=== PATIENT | male | born 1995 | race Caucasian/White ===

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

== ENCOUNTER 2018-06-23 10:56 | Observation (INO) ==
[2018-06-23] MEDS ORDERED: ONDANSETRON INJ 2 MG/ML 2 ML VIAL IV STA ×2 (11:20→12:57)
[2018-06-23] MEDS ORDERED: MoRPHine SULFATE 4 MG/ML 1 ML CARP\\VIAL IV STA ×2 (11:20→12:57)
--- NOTE | 2018-06-23 11:22 | Emergency Department Note ---
Entered by Mitzy Brantley acting as a scribe for History of Present Illness General Chief complaint: Constipation Stated complaint: CONSTIPATION Time Seen by Provider: 06/23/18 11:04 Source: patient History of Present Illness Provider complaint: constipation Onset (ago): month(s) 2 Location: abdomen Maximum Pain Intensity: 6 Quality: + other (constipation) Associated symptoms: + nausea/vomiting The patient is a 23 year old white male w/ PMHx of Hirschsprung's disease, an appendectomy, and a colonoscopy who presents to the ED w/ CC of constipation over the last 2 months. The patient rates his pain at a 6/10. He reports that he is able to pass gas but states that he is only passing stas and has not had a solid bowel movement. The patient states that he saw Dr. Solitario a couple of weeks ago. He states that he has had multiple surgeries and that he had a colostomy bag as a child and thinks that he may need another one. He states that he has been missing work secondary to pain. The patient states that he has lost 6 pounds as he has been vomiting after he has been eating. He states that he is on 390 mg of Linzess and Mirolax but states that this has not been helping to alleviate his symptoms. He states that he has not had a scope in a couple years. The patient reports occasional alcohol use but denies tobacco use. He states that he was at [facility] this morning and was referred here. Review of EMR shows that the patient saw Kat NICHOLAS who re commended an NG tube placement and Golytely. She also recommended liquids, Miralax, and Linzess. Home Medications Home Medications Medication Instructions Recorded Confirmed Type linaclotide [Linzess] 290 mcg PO DAILY 06/23/18 06/23/18 History omeprazole 20 mg PO DAILY 06/23/18 06/23/18 History polyethylene glycol 3350 [Miralax] 17 g PO DAILY 06/23/18 06/23/18 History Allergies Allergy/AdvReac Type Severity Reaction Status Date / Time amoxicillin Allergy Unknown . Verified 06/23/18 11:24 clavulanic acid Allergy Unknown . Verified 06/23/18 11:24 Past Med/Surg History Medical History Hirschsprung's disease (Chronic) Surgical History History of appendectomy (Resolved) Hx of colonoscopy (Resolved) Social History Feels Safe at Home: Yes Smoking Status: Never smoker Review of Systems See HPI for pertinent positives & negatives. and A total of 10 systems reviewed and were otherwise negative Physical Exam Vital Signs Vital Signs - 24 hr 06/23/18 10:59 06/23/18 13:07 Temperature 36.8 C Temperature Source Oral Sepsis Action Taken by Nursing No Action Required Pulse Rate 64 Pulse Rate [Finger] 53 L Respiratory Rate 20 16 Respiratory Effort / Characteristics Non-Labored Spontaneous Non-Labored Respiratory Depth Normal Normal Blood Pressure 149/79 H Blood Pressure [Right Arm] 143/80 H Blood Pressure Mean 102 Blood Pressure Mean [Right Arm] 101 Pulse Oximetry 99 99 Oxygen Delivery Method Room Air GENERAL: Well appearing, well nourished, NAD, non-toxic. EYE EXAM: Normal conjunctiva. PERRL, no anisocoria and EOM's grossly intact w/o pain OROPHARYNX: Moist mucus membranes. NECK: Supple, no nuchal rigidity, no adenopathy, non-tender. No signs of meningismus. LUNGS: Clear to auscultation bilaterally. Normal chest wall mechanics. HEART: Normal sinus rhythm, no MRG. ABDOMEN: Abdomen soft, no masses, no rebound or guarding. Mildly diffuse abdominal discomfort. BACK: No CVA TTP. SKIN: No rashes and no bruising. UPPER EXTREMITIES: Upper extremities are grossly normal. LOWER EXTREMITIES: No pitting edema. No calf pain. NEURO EXAM: AOx3, GCS 15, no gross deficit, follows commands. Moves all 4 extremities on command w/o issue Course 1109: Past medical records reviewed. The patient was evaluated in room C6, and a complete history and physical examination were performed. 1255: I checked on the patient. He is still having discomfort. 1315: I discussed the patient's case with Kat BOO who said that if the patient cannot handle a bowel prep then he probably needs to be admitted. 1320: I updated the patient. He is agreeable to admission. We will put an NG tube in. 1332: I discussed the patient's case with Tre Warren who recommended 17 g of Miralax every hour. 1344: I discussed the patient's case with Dr. Bauer who will evaluate the patient for further management. Consultations Consultation #1: Kat NICHOLAS GI Time: 13:15 Consultation #2: Tre Warren Time: 13:32 Time: 13:44 Additional Consultation(s): Dr. Bauer Administered Medications Potassium Chloride/Dextrose/Sod Cl (D5w And 1/2nss + 20meq Kcl) 20 meq in 1,000 mls @ 125 mls/hr IV .Q8H JANE Stop: 07/23/18 13:29 Last Admin: 06/23/18 14:01 Dose: 125 mls/hr Documented by: [id number] Ioversol (Optiray 320 100ml) 94 ml IV ONCE PRN PRN Reason: Interaction Checking Stop: 06/27/18 12:37 Last Admin: 06/23/18 12:38 Dose: 94 ml Documented by: [id number] Discontinued Medications Sodium Chloride (Nss 1000ml) 1,000 mls @ 999 mls/hr IV .Q1H1M JANE Stop: 06/23/18 12:30 Last Infusion: 06/23/18 12:53 Dose: 0 mls/hr Documented by: [id number] Admin: 06/23/18 11:42 Dose: 999 mls/hr Documented by: [id number] Metoclopramide HCl (Reglan) 10 mg IV NOW STA Stop: 06/23/18 13:02 Last Admin: 06/23/18 13:06 Dose: 10 mg Documented by: [id number] Morphine Sulfate (Morphine Sulfate) 4 mg IV NOW STA Stop: 06/23/18 11:21 Last Admin: 06/23/18 11:42 Dose: 4 mg Documented by: [id number] Morphine Sulfate (Morphine Sulfate) 4 mg IV NOW STA Stop: 06/23/18 12:58 Last Admin: 06/23/18 13:06 Dose: 4 mg Documented by: [id number] Ondansetron HCl (Zofran) 4 mg IV NOW STA Stop: 06/23/18 11:21 Last Admin: 06/23/18 11:42 Dose: 4 mg Documented by: [id number] Medical Decision Making Medical Records Attestation: I reviewed the patient's medical records. Home Medications Current Medication List: was personally reviewed by me Laboratory Data Attestation: I reviewed the patient's lab results. Result diagrams: 06/23/18 11:35 06/23/18 11:35 Lab Results 06/23/18 06/23/18 06/23/18 Range/Units 11:35 11:35 11:42 WBC 3.54 L (4.8-10.8) K/uL RBC 5.13 (4.7-6.1) M/uL Hgb 14.8 (14.0-18.0) g/dL POC Hgb 14.6 (14.0-18.0) g/dl Hct 43.6 (42-52) % POC Hct 43 (42-52) % MCV 85.0 (80-100) fL MCH 28.8 (25-34) pg MCHC 33.9 (32-36) g/dL RDW Std Deviation 38.7 (36.4-46.3) fL RDW Coeff of Tono 12.5 (11.5-14.5) % Plt Count 217 (130-400) K/uL MPV 10.7 H (7.4-10.4) fL Immature Gran % (Auto) 0.0 % Neut % (Auto) 46.9 % Lymph % (Auto) 37.3 % Clark % (Auto) 13.6 % Eos % (Auto) 1.4 % Baso % (Auto) 0.8 % Immature Gran # (Auto) 0.00 (0.00-0.02) K/uL Neut # (Auto) 1.66 (1.4-6.5) K/uL Lymph # (Auto) 1.32 (1.2-3.4) K/uL Clark # (Auto) 0.48 (0.11-0.59) K/uL Eos # (Auto) 0.05 (0-0.5) K/uL Baso # (Auto) 0.03 (0-0.2) K/uL POC Sodium 140 (135-144) mEq/L Sodium 139 (136-145) mmol/L POC Potassium 4.1 (3.3-5.0) mEq/L Potassium 4.0 (3.5-5.1) mmol/L POC Chloride 99 L (101-112) mEq/L Chloride 103 (98-107) mmol/L Carbon Dioxide 31 (21-32) mmol/L POC Total CO2 29 (24-31) mEq/l Anion Gap 4.0 (3-11) POC Anion Gap 17.0 (16-25) mmol/L POC BUN 14 (7-18) mg/dl BUN 15 (7-18) mg/dl Creatinine 1.10 (0.6-1.4) mg/dl POC Creatinine 1.0 (0.6-1.3) mg/dl Est Cr Clr Drug Dosing 128.8 ml/min Est GFR ( Amer) 110.6 Est GFR (Non-Af Amer) 95.5 BUN/Creatinine Ratio 13.5 (10-20) Glucose 97 (70-99) mg/dl POC Glucose (other) 97 (70-99) mg/dl Calcium 9.4 (8.5-10.1) mg/dl POC Ioniz Calcium Jennifer 1.24 (1.12-1.32) mmol/l Total Bilirubin 0.5 (0.2-1) mg/dl AST 18 (15-37) U/L ALT 26 (12-78) U/L Alkaline Phosphatase 69 (45-117) U/L Total Protein 7.7 (6.4-8.2) gm/dl Albumin 4.2 (3.4-5.0) gm/dl Globulin 3.5 (2.5-4.0) gm/dl Albumin/Globulin Ratio 1.2 (0.9-2) Lipase 121 (73-393) U/L Urine Color Urine Appearance (Clear) Urine pH (4.5-7.5) Ur Specific [place] (1.000-1.030) Urine Protein (Negative) Urine Glucose (UA) (Negative) Urine Ketones (Negative) Urine Blood (Negative) Urine Nitrite (Negative) Urine Bilirubin (Negative) Urine Urobilinogen (Negative) Ur Leukocyte Esterase (Negative) 06/23/18 Range/Units 12:50 WBC (4.8-10.8) K/uL RBC (4.7-6.1) M/uL Hgb (14.0-18.0) g/dL POC Hgb (14.0-18.0) g/dl Hct (42-52) % POC Hct (42-52) % MCV (80-100) fL MCH (25-34) pg MCHC (32-36) g/dL RDW Std Deviation (36.4-46.3) fL RDW Coeff of Tono (11.5-14.5) % Plt Count (130-400) K/uL MPV (7.4-10.4) fL Immature Gran % (Auto) % Neut % (Auto) % Lymph % (Auto) % Clark % (Auto) % Eos % (Auto) % Baso % (Auto) % Immature Gran # (Auto) (0.00-0.02) K/uL Neut # (Auto) (1.4-6.5) K/uL Lymph # (Auto) (1.2-3.4) K/uL Clark # (Auto) (0.11-0.59) K/uL Eos # (Auto) (0-0.5) K/uL Baso # (Auto) (0-0.2) K/uL POC Sodium (135-144) mEq/L Sodium (136-145) mmol/L POC Potassium (3.3-5.0) mEq/L Potassium (3.5-5.1) mmol/L POC Chloride (101-112) mEq/L Chloride (98-107) mmol/L Carbon Dioxide (21-32) mmol/L POC Total CO2 (24-31) mEq/l Anion Gap (3-11) POC Anion Gap (16-25) mmol/L POC BUN (7-18) mg/dl BUN (7-18) mg/dl Creatinine (0.6-1.4) mg/dl POC Creatinine (0.6-1.3) mg/dl Est Cr Clr Drug Dosing ml/min Est GFR ( Amer) Est GFR (Non-Af Amer) BUN/Creatinine Ratio (10-20) Glucose (70-99) mg/dl POC Glucose (other) (70-99) mg/dl Calcium (8.5-10.1) mg/dl POC Ioniz Calcium Jennifer (1.12-1.32) mmol/l Total Bilirubin (0.2-1) mg/dl AST (15-37) U/L ALT (12-78) U/L Alkaline Phosphatase (45-117) U/L Total Protein (6.4-8.2) gm/dl Albumin (3.4-5.0) gm/dl Globulin (2.5-4.0) gm/dl Albumin/Globulin Ratio (0.9-2) Lipase (73-393) U/L Urine Color Yellow Urine Appearance Clear (Clear) Urine pH 6.5 (4.5-7.5) Ur Specific [place] 1.015 (1.000-1.030) Urine Protein Negative (Negative) Urine Glucose (UA) Negative (Negative) Urine Ketones Negative (Negative) Urine Blood Negative (Negative) Urine Nitrite Negative (Negative) Urine Bilirubin Negative (Negative) Urine Urobilinogen Negative (Negative) Ur Leukocyte Esterase Negative (Negative) Imaging Data Radiologist's Impression: Radiology results as stated below per my review and the radiologist's interpretation: ABDOMEN AND PELVIS CT WITH IV CONTRAST CT DOSE: 1003.60 mGycm HISTORY: h/o Hirschsprung's, vomiting TECHNIQUE: Multiaxial CT images of the abdomen and pelvis were performed following the use of intravenous contrast. A dose lowering technique was utilized adhering to the principles of ALARA. COMPARISON STUDY: None. FINDINGS: The lung bases are clear. The liver, spleen, gallbladder, pancreas, kidneys, and adrenal glands are within normal limits. No bowel wall thickening or obstruction. The pelvic organs are unremarkable. No suspicious lytic or blastic osseous lesions. Prior appendectomy. Linear scarlike densities within the mid abdominal wall. IMPRESSION: No significant abnormality identified within the abdomen or pelvis. Electronically signed by: Josiah Rivas M.D. 06/23/2018 12:52 PM Blood Pressure Blood Pressure Findings: Elevated blood pressure Blood Pressure Disposition: further management by hospitalist TASHA Narrative The patient is a 23 year old white male w/ PMHx of Hirschsprung's disease, an appendectomy, and a colonoscopy who presents to the ED w/ CC of constipation over the last 2 months. Differential diagnosis: Etiologies such as biliary colic, cholecystitis, hepatitis, pancreatitis, cardiac disease, pancreatitis, gastritis, peptic ulcer disease, appendicitis, cystitis, diverticulitis, mesenteric ischemia, inflammatory bowel disease, ileus, bowel obstruction, testicular torsion, aortic pathology, shingles, as well as others were considered. Patient was seen and evaluated the bedside. The patient relates that he had some chronic constipation and lots of gas and incomplete bowel movements. The patient is have a history of Hirschsprung's status post partial colectomy and associated colostomy status post reversal. The patient did see [facility] today and was referred here for likely NG placement to MiraLAX. The patient has reportedly vomited virtually everything that he is tried to take within the last several days. Patient does have diffuse abdominal discomfort on exam. The patient had a bladder completed which is unremarkable. CT the abdomen pelvis was also unremarkable. I did speak with the outpatient associate agent insurance sales Ann Spence who stated that could potentially try ER treatment for a bowel movement but the patient states that this usually takes 12-13 hours at a minimum. Given this I did speak with the current in-house associate agent insurance sales Trace Schmitz who recommended the NG and associated MiraLAX 17 g every hour until he has a bowel movement. I did speak to the hospital to agree to further evaluate and admit the patient for an observation. With a gastroenterology consult. Impression & Plan Constipation, Hirschsprung's disease Discharge Plan Visit Data Chief Complaint: Constipation Stated Complaint: CONSTIPATION ED Provider: Jorge Reed Discharge Problem: Constipation, Hirschsprung's disease Patient Disposition: Being Evaluated by Hospitalist Forms Stand Alone Forms: My [facility] Prescriptions Prescriptions: No Action polyethylene glycol 3350 [Miralax] 17 gram Powder In Packet 17 g PO DAILY RF: 0 omeprazole 20 mg Capsule,Delayed Release(Dr/Ec) 20 mg PO DAILY RF: 0 Linzess 290 mcg Capsule 290 mcg PO DAILY RF: 0 Referrals Referrals: PCP,NO [Primary Care Provider] - Discharge Problem: Constipation Qualifiers: Constipation type: unspecified constipation type Qualified Code(s): K59.00 - Constipation, unspecified The scribe's documentation has been prepared under my direction and personally reviewed by me in its entirety. I confirm that the note above accurately reflects all work, treatment, procedures, and medical decision making performed by me.
[2018-06-23] MEDS ORDERED: SODIUM CHLORIDE 0.9% 1000ML 1,000 ML IV SCH (11:30)
[2018-06-23 11:54] LABS: iSTAT Hemoglobin 14.6 g/dl (14.0-18.0); iSTAT Ionized Calcium 1.24 mmol/l (1.12-1.32); iSTAT Potassium 4.1 mEq/L (3.3-5.0)
[2018-06-23 11:54] LABS: Basophils # (auto) 0.03 K/uL (0-0.2); Basophils % (auto) 0.8 %; Eosinophils # (auto) 0.05 K/uL (0-0.5); Eosinophils % (auto) 1.4 %; Hematocrit (blood only) 43.6 % (42-52); Hemoglobin 14.8 g/dL (14.0-18.0); Lymphocytes # (auto) 1.32 K/uL (1.2-3.4); Lymphocytes % (auto) 37.3 %; Mean Corpuscular Hgb Conc 33.9 g/dL (32-36); Mean Platelet Volume 10.7 fL (7.4-10.4); Monocytes # (auto) 0.48 K/uL (0.11-0.59); Monocytes % (auto) 13.6 %; Neutrophils # (auto) 1.66 K/uL (1.4-6.5); Neutrophils % (auto) 46.9 %; Platelet Count 217 K/uL (130-400); RDW Coefficient of Variation 12.5 % (11.5-14.5); RDW Standard Deviation 38.7 fL (36.4-46.3); Red Blood Count 5.13 M/uL (4.7-6.1); White Blood Count 3.54 K/uL (4.8-10.8)
[2018-06-23 12:11] LABS: Albumin Level 4.2 gm/dl (3.4-5.0); BUN Creatinine Ratio 13.5 (10-20); Calcium 9.4 mg/dl (8.5-10.1); Creatinine Clr Calc Pharmacy 128.8 ml/min; Est GFR (African American) 110.6; Est GFR (Non-African American) 95.5
[2018-06-23 12:14] LABS: Albumin Globulin Ratio 1.2 (0.9-2); Bilirubin,Total 0.5 mg/dl (0.2-1); Globulin 3.5 gm/dl (2.5-4.0); Total Protein 7.7 gm/dl (6.4-8.2)
[2018-06-23] MEDS ORDERED: IOVERSOL 100ml IV PRN (12:38)
--- NOTE | 2018-06-23 12:53 | CT Scan Report ---
ABDOMEN AND PELVIS CT WITH IV CONTRAST CT DOSE: 1003.60 mGycm HISTORY: h/o Hirschsprung's, vomiting TECHNIQUE: Multiaxial CT images of the abdomen and pelvis were performed following the use of intrave nous contrast. A dose lowering technique was utilized adhering to the principles of ALARA. COMPARISON STUDY: None. FINDINGS: The lung bases are clear. The liver, spleen, gallbladder, pancreas, kidneys, and adrenal gl ands are within normal limits. No bowel wall thickening or obstruction. The pelvic organs are unremar kable. No suspicious lytic or blastic osseous lesions. Prior appendectomy. Linear scarlike densities within the mid abdominal wall. IMPRESSION: No significant abnormality identified within the abdomen or pelvis. Electronically signed by: Josiah Rivas M.D. 06/23/2018 12:52 PM
[2018-06-23] MEDS ORDERED: METOCLOPRAMIDE HCL INJ 5 MG/ML 2 ML VIAL IV STA (13:01)
[2018-06-23 13:04] LABS: Appearance Urine Clear (Clear); Bilirubin Urine Negative (Negative); Blood Urine Negative (Negative); Color Urine Yellow; Glucose Urine UA Negative (Negative); Ketones Urine Negative (Negative); Leukocyte Esterase Urine Negative (Negative); Nitrite Urine Negative (Negative); Protein Urine Negative (Negative); Specific Gravity Urine 1.015 (1.000-1.030); Urobilinogen Urine Negative (Negative); pH Urine 6.5 (4.5-7.5)
[2018-06-23] MEDS ORDERED: POLYETHYLENE (MIRALAX) 17 GM PACK PO SCH (13:45)
[2018-06-23] MEDS: D5W AND 1/2NSS + 20MEQ KCL 20 MEQ/1,000 ML BAG IV SCH ×3 (14:01→22:06)
--- NOTE | 2018-06-23 14:02 | History & Physical Report ---
Date of Service June 23, 2018 Assessment & Plan (1) Constipation: Nausea, vomiting and Constipation H/O Hirschsprung's disease s/p multiple abdominal surgeries CT ABD:No significant abnormality identified within the abdomen or pelvis. Patient refuses NG tube placement IV fluids, Antiemetics Miralax Q1H until BM as per GI Pain Control Appreciate GI input Clear liquid diet for now Elevated Blood Pressure Likely due to pain Monitor DVT Px: SCDs Code Status: Full Code Disposition: Expect to discharge home when stable History of Present Illness Chief Complaint: Constipation Primary Care Provider: JACKELINE PCP Patient is a 23-year-old male with history of Hirschsprung's disease s/p multiple abdominal surgeries and other problems presents with history of constipation since last 2 months duration. Patient was evaluated by his accountancy professor as outpatient for ongoing intractable nausea, vomiting and constipation. Patient was advised to go to ED for further evaluation and management. Patient states having nausea and vomiting with every meal and has ongoing constipation since 2 months. Patient has flatus and very small pebble like stool and reports associated abdominal pain. He reports abdominal pain is generalized, predominantly located in the bilateral lower abdominal quadrants, and left upper quadrant. Abdominal pain is constant, nonradiating, 6/10 intensity, no aggravating or relieving factors, not associated with food intake or bowel movement. States weight loss of about 6 pounds in the last 2-3 weeks duration. Denies any blood in stool, melena. Reports history of stool incontinence. Denies any history of chest pain, SOB, dizziness, cough, fever, chills, headache, diarrhea, change in appetite, dysuria, hematuria, recent change in medications. Allergies Allergy/AdvReac Type Severity Reaction Status Date / Time amoxicillin Allergy Unknown . Verified 06/23/18 11:24 clavulanic acid Allergy Unknown . 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 Beliefs That Will Affect Care: None Current Living Situation: Alone Other Information That Helps Us Care for You: No Feels Safe at Home: Yes Safety Concerns: Feels Safe At This Time Smoking Status: Never smoker Hx Alcohol Use: Yes Hx Substance Use: No Review of Systems All systems reviewed & are unremarkable except as noted in HPI & below Physical Exam Vital Signs (Past 24 Hours): Last Vital Signs Temp 36.8 C 06/23/18 10:59 Pulse 53 L 06/23/18 13:07 Resp 16 06/23/18 13:07 BP 143/80 H 06/23/18 13:07 Pulse Ox 99 06/23/18 13:07 Physical Exam: Physical Exam: Vitals signs as noted above General Appearance:Moderately built and nourished, no apparent distress Head: normocephalic, Atraumatic Eyes: normal inspection, EOMI Neck: supple, Trachea midline Respiratory/Chest: Normal breath sounds, CTA Cardiovascular: S1, S2, No murmur Abdomen/GI:Soft, generalized tender, + Voluntary guarding, no rebound Extremities/Musculoskelatal:normal inspection, no edema Neurologic/Psych:AAOX3, grossly no focal neurological deficits Skin: normal color, warm Results & Data Laboratory Results Short CBC 06/23/18 Range/Units 11:35 WBC 3.54 L (4.8-10.8) K/uL Hgb 14.8 (14.0-18.0) g/dL Hct 43.6 (42-52) % Plt Count 217 (130-400) K/uL BMP 06/23/18 11:35 Sodium 139 Potassium 4.0 Chloride 103 Carbon Dioxide 31 BUN 15 Creatinine 1.10 Glucose 97 Calcium 9.4 Liver Function 06/23/18 Range/Units 11:35 Total Bilirubin 0.5 (0.2-1) mg/dl AST 18 (15-37) U/L ALT 26 (12-78) U/L Alkaline Phosphatase 69 (45-117) U/L Albumin 4.2 (3.4-5.0) gm/dl Urine 06/23/18 Range/Units 12:50 Urine Color Yellow Urine Appearance Clear (Clear) Urine pH 6.5 (4.5-7.5) Ur Specific [place] 1.015 (1.000-1.030) Urine Protein Negative (Negative) Urine Glucose (UA) Negative (Negative) Diagnostic Findings CT ABD: No significant abnormality identified within the abdomen or pelvis. (1) Constipation Constipation type: unspecified constipation type Qualified Code(s): K59.00 - Constipation, unspecified
[2018-06-23] MEDS: POLYETHYLENE (MIRALAX) 17 GM PACK NG SCH ×5 (15:45→19:57)
[2018-06-23] MEDS ORDERED: MoRPHine SULFATE 4 MG/ML 1 ML CARP\\VIAL IV PRN (18:15)
[2018-06-23] MEDS ORDERED: ACETAMINOPHEN 325 MG TAB PO PRN (18:15)
[2018-06-23] MEDS: POLYETHYLENE (MIRALAX) 17 GM PACK PO SCH ×6 (19:35→23:49)
[2018-06-23] MEDS: PANTOprazole 40 MG in SYRINGE 0 ML IV SCH (19:36)
[2018-06-23] MEDS: ONDANSETRON INJ 2 MG/ML 2 ML VIAL IV PRN (19:40)
[2018-06-23] MEDS ORDERED: Nursing to Pharmacy Communication ONE (21:05)
[2018-06-23] MEDS ORDERED: LINACLOTIDE 72 MCG CAPSULE PO ONE (21:30)
[2018-06-24] MEDS: POLYETHYLENE (MIRALAX) 17 GM PACK PO SCH ×7 (00:40→06:16)
[2018-06-24] MEDS: ONDANSETRON INJ 2 MG/ML 2 ML VIAL IV PRN ×2 (01:21→09:57)
[2018-06-24] MEDS: D5W AND 1/2NSS + 20MEQ KCL 20 MEQ/1,000 ML BAG IV SCH ×2 (05:29→13:40)
[2018-06-24 06:33] LABS: Hematocrit (blood only) 38.5 % (42-52); Hemoglobin 13.2 g/dL (14.0-18.0); Mean Corpuscular Hgb Conc 34.3 g/dL (32-36); Mean Corpuscular Volume 85.2 fL (80-100); Mean Platelet Volume 11.1 fL (7.4-10.4); Platelet Count 189 K/uL (130-400); RDW Coefficient of Variation 12.7 % (11.5-14.5); RDW Standard Deviation 39.5 fL (36.4-46.3); Red Blood Count 4.52 M/uL (4.7-6.1); White Blood Count 4.48 K/uL (4.8-10.8)
[2018-06-24 07:13] LABS: BUN Creatinine Ratio 8.4 (10-20); Calcium 8.8 mg/dl (8.5-10.1); Creatinine Clr Calc Pharmacy 124.3 ml/min; Est GFR (Non-African American) 91.4
[2018-06-24] MEDS ORDERED: LINACLOTIDE 72 MCG CAPSULE PO SCH (09:00)
--- NOTE | 2018-06-24 10:48 | Gastrointestinal Consultation ---
Date of Consultation June 24, 2018 Assessment & Plan (1) Constipation: Improved with a miralax purge. Would continue Linzess 290mcg daily. Encouraged to titrate Miralax to affect one BM/day. Also, pt referred to OP Colorectal surgery. Present on Admission?: Yes (2) Hirschsprung's disease: referred to OP colorectal surgery. Has f/u with Dr. Read 07/28/18 at (3) Nausea & vomiting: This is chronic, of 6 months duration, not clearly associated with the constipation (meaning not occurring with times of worsened constipation. Gastritis, duodenitis and ulcer disease should be ruled out. OP EGD scheduled with Dr. Read on 07/15/18 at [place]. Continue omeprazole 20mg daily. Trial of regular consistency diet (pt feels this would cause the least amt of nausea/vomiting today) No GI contraindication to DC if able to tolerate eating. Present on Admission?: Yes Supervising Physician Co-Signing Physician Notes I have performed a history and physical examination of this patient and reviewed the electronic medical record. Specifically, on physical examination there is diffuse abdominal tenderness. I have discussed the case with CRISTOPHER Acosta. The above note reflects my findings, conclusions, and recommendations. Elmer Smith MD History of Present Illness Reason for Consultation: constipation Requesting Physician: Dr. Norwood Attending Physician: Ross Norwood MD History of Present Illness Mr. Dakota Hardy is a 23 yr old male w/ history of Hirschsprung disease, encopresis, s/pcolostomy, pull through followed by colostomy takedown, MACE procedureand Sphincteroplasty. He is maintained on Linzess, Miralax. He was seen in GI clinic yesterday by Serina Taylor for bloating, worsening constipation, vomiting. He indicated an interest in surgery and an OP consult was placed to colorectal surgery, [place]. Meanwhile, because he was pale, appeared dehydrated with an acutely tender abdomen, he was sent to [facility] ED for eval. On arrival, CBC, CMP w/o any significant abnormalities. CT also without any abnormalities. Since arrival, with mirlax hourly till his first BM, he passed several loose/liquid BMs. In addition to the constipation issue, he reports frequent nausea, every day with vomiting nearly every day, since last December. He recalls this because he underwent NG insertion at that time for administration of golytely for constipation. He is concerned that the NG may have caused this ongoing nausea/vomiting. He denies vomiting of foods that he ate several hrs previously (no signs of gastroparesis). Also, no hematemesis, melena or hematochezia. Prior endoscopy: Most recent Colonoscopy 01/25/2014: The sigmoid colon and rectum are normal. Biopsied. The transverse and descending colon are normal.Biopsied. Normal mucosa of the cecum and ascending colon.Biopsied. Small ulcerated area at the internal openingof the apendicostomy tube which was NOT biopsied.The examined portion of the ileum was normal.Biopsied. EGD 07/05/2010: No gross lesions in duodenum. No gross lesions in the stomach. No gross lesions in esophagus. Allergies Allergy/AdvReac Type Severity Reaction Status Date / Time amoxicillin Allergy Unknown . Verified 06/23/18 11:24 clavulanic acid Allergy Unknown . Verified 06/23/18 11:24 Home Medications Home Medications Medication Instructions Recorded Confirmed Type Linzess 290 mcg PO DAILY 06/23/18 06/23/18 History omeprazole 20 mg PO DAILY 06/23/18 06/23/18 History polyethylene glycol 3350 [Miralax] 17 g PO DAILY 06/23/18 06/23/18 History Patient History Medical History Hirschsprung's disease (Chronic) Surgical History History of appendectomy (Resolved) Hx of colonoscopy (Resolved) Social History Preferred Language: Vincentian Communication Ability: Effective Housekeeping Manager Required: No Beliefs That Will Affect Care: None Current Living Situation: Alone Other Information That Helps Us Care for You: No Feels Safe at Home: Yes Safety Concerns: Feels Safe At This Time Smoking Status: Never smoker Do You Dip or Chew Tobacco: No Second Hand Exposure: No Tobacco Cessation Education Requested by Patient: No Hx Alcohol Use: Yes Hx Substance Use: No Physical Exam Vital Signs (Past 24 Hours): Last Vital Signs Temp 36.5 C 06/24/18 07:54 Pulse 64 06/24/18 07:54 Resp 16 06/24/18 07:54 BP 103/66 06/24/18 07:54 Pulse Ox 97 06/24/18 07:54 Constitutional: WD/WN, vitals as above well developed, well nourished, + acute distress and + overweight Eyes: PERRL, conjunctivae normal, anicteric sclerae ENMT: external ear and nose normal, oropharynx normal Neck: trachea midline, no thyromegaly Respiratory: normal respiratory effort, lungs clear to auscultation Cardiovascular: RRR, no murmur, no edema Gastrointestinal (Abdomen): Inspection/Auscultation: abdomen normal to inspection; abdomen not distended Percussion/Palpation: + abdomen tender (LUQ) and abdomen soft; no guarding and abdomen not rigid Musculoskeletal: no cyanosis or clubbing, extremities motor strength 5/5 Skin: no rashes, warm and dry Neurologic: PERRL, EOMI, accommodation nl, no face palsy, no dysarthria Psychiatric: A+Ox3, euthymic affect Lymphatic: no cervical or axillary lymphadenopathy Results & Data Laboratory Results WBC 4.4, Hb 13.2, Hct 38.5, Platelets 189, Na 139, K 4.0, Ch 106, CO2 27, BUN 10, Cr 1.14. Diagnostic Findings CT abd/pelvis: No significant abnormality identified within the abdomen or pelvis. (1) Constipation Constipation type: unspecified constipation type Qualified Code(s): K59.00 - Constipation, unspecified
[2018-06-24] MEDS: PANTOprazole 40 MG in SYRINGE 0 ML IV SCH (11:52)
[2018-06-24] MEDS ORDERED: METOCLOPRAMIDE HCL INJ 5 MG/ML 2 ML VIAL IV PRN (12:34)
[2018-06-24] MEDS ORDERED: METOCLOPRAMIDE HCL INJ 5 MG/ML 2 ML VIAL ONE (13:05)
--- NOTE | 2018-06-24 14:59 | Hospitalist Progress Note ---
Date of Service June 24, 2018 Assessment & Plan (1) Constipation: Nausea, vomiting and Constipation H/O Hirschsprung's disease s/p multiple abdominal surgeries CT ABD:No significant abnormality identified within the abdomen or pelvis. Patient clear liquids, IV fluids GI recommended MiraLAX every 1 hour, patient had subsequent bowel movements after Patient is to be evaluated by GI service GI symptoms improved Tolerating regular diet GI cleared patient for discharge with usual Linzess and MiraLAX Recommend outpatient EGD on July 15, 2018 Outpatient follow-up with colorectal surgeon as scheduled Discussed patient's case with patient and his mother, they are all agreeable and comfortable with plan of care Elevated Blood Pressure Likely due to pain Resolved Disposition: Discharge to home Follow-up with primary care physician in the [facility] as per outlined in the discharge instruction Follow-up withGi Clinic and Colorectal surgery clinic as scheduled Subjective Follow-up for constipation Seen with his mother at bedside In the morning patient states nausea has improved Had multiple BMs overnight soft/loose Denies abdominal pain Denies shortness of breath, chest pain, dizziness No other symptoms Physical Exam Vital Signs (Past 24 Hours): Last Vital Signs Temp 36.5 C 06/24/18 13:41 Pulse 64 06/24/18 13:41 Resp 16 06/24/18 13:41 BP 131/78 06/24/18 13:41 Pulse Ox 97 06/24/18 13:41 Physical Exam: General- oriented x 3, not in distress, speaks in sentences with no effort or accessory muscle use Eyes- anicteric Neck- no JVD Lungs- clear breath sounds bilaterally, no rales/wheezes Heart- normal rate, regular rhythm; no murmurs Abdomen- normal bowel sounds, nondistended, soft, nontender Extremities- no pretibial edema, no calf tenderness Neuro- alert, oriented x 3; no gross focal neurologic deficits Skin- warm & dry Results & Data Laboratory Results Laboratory Results - last 24 hr 06/24/18 06/24/18 05:48 05:48 WBC 4.48 L RBC 4.52 L Hgb 13.2 L Hct 38.5 L MCV 85.2 MCH 29.2 MCHC 34.3 RDW Std Deviation 39.5 RDW Coeff of Tono 12.7 Plt Count 189 MPV 11.1 H Sodium 139 Potassium 4.0 Chloride 106 Carbon Dioxide 27 Anion Gap 6.0 BUN 10 D Creatinine 1.14 Est Cr Clr Drug Dosing 124.3 Est GFR ( Amer) 106.0 Est GFR (Non-Af Amer) 91.4 BUN/Creatinine Ratio 8.4 L Glucose 118 H Calcium 8.8 Magnesium 2.0 (1) Constipation Constipation type: unspecified constipation type Qualified Code(s): K59.00 - Constipation, unspecified
--- NOTE | 2018-06-24 15:23 | Discharge Summary ---
Date of Service June 24, 2018 Admission HPI Per Admitting Provider Patient is a 23-year-old male with history of Hirschsprung's disease s/p multiple abdominal surgeries and other problems presents with history of constipation since last 2 months duration. Patient was evaluated by his real estate underwriter as outpatient for ongoing intractable nausea, vomiting and constipation. Patient was advised to go to ED for further evaluation and management. Patient states having nausea and vomiting with every meal and has ongoing constipation since 2 months. Patient has flatus and very small pebble like stool and reports associated abdominal pain. He reports abdominal pain is generalized, predominantly located in the bilateral lower abdominal quadrants, and left upper quadrant. Abdominal pain is constant, nonradiating, 6/10 intensity, no aggravating or relieving factors, not associated with food intake or bowel movement. States weight loss of about 6 pounds in the last 2-3 weeks duration. Denies any blood in stool, melena. Reports history of stool incontinence. Denies any history of chest pain, SOB, dizziness, cough, fever, chills, headache, diarrhea, change in appetite, dysuria, hematuria, recent change in medications. Admission Exam Per Admitting Provider Vital Signs (Past 24 Hours): Last Vital Signs Temp 36.8 C 06/23/18 10:59 Pulse 53 L 06/23/18 13:07 Resp 16 06/23/18 13:07 BP 143/80 H 06/23/18 13:07 Pulse Ox 99 06/23/18 13:07 Physical Exam: Physical Exam: Vitals signs as noted above General Appearance:Moderately built and nourished, no apparent distress Head: normocephalic, Atraumatic Eyes: normal inspection, EOMI Neck: supple, Trachea midline Respiratory/Chest: Normal breath sounds, CTA Cardiovascular: S1, S2, No murmur Abdomen/GI:Soft, generalized tender, + Voluntary guarding, no rebound Extremities/Musculoskelatal:normal inspection, no edema Neurologic/Psych:AAOX3, grossly no focal neurological deficits Skin: normal color, warm Principal Diagnosis CONSTIPATION Discharge Exam Vital Signs (Past 24 Hours): Last Vital Signs Temp 36.5 C 06/24/18 13:41 Pulse 64 06/24/18 13:41 Resp 16 06/24/18 13:41 BP 131/78 06/24/18 13:41 Pulse Ox 97 06/24/18 13:41 Physical Exam: General- oriented x 3, not in distress, speaks in sentences with no effort or accessory muscle use Eyes- anicteric Neck- no JVD Lungs- clear breath sounds bilaterally, no rales/wheezes Heart- normal rate, regular rhythm; no murmurs Abdomen- normal bowel sounds, nondistended, soft, nontender Extremities- no pretibial edema, no calf tenderness Neuro- alert, oriented x 3; no gross focal neurologic deficits Skin- warm & dry Discharge Data Allergies Allergy/AdvReac Type Severity Reaction Status Date / Time amoxicillin Allergy Unknown . Verified 06/23/18 11:24 clavulanic acid Allergy Unknown . Verified 06/23/18 11:24 Consultations 06/23/18 13:54 ED Decision to Admit Stat 06/23/18 18:15 Consult Gastroenterology Routine Ordered Studies 06/23/18 11:20 CT abd pelvis IV con only Stat ABDOMEN AND PELVIS CT WITH IV CONTRAST CT DOSE: 1003.60 mGycm HISTORY: h/o Hirschsprung's, vomiting TECHNIQUE: Multiaxial CT images of the abdomen and pelvis were performed following the use of intravenous contrast. A dose lowering technique was utilized adhering to the principles of ALARA. COMPARISON STUDY: None. FINDINGS: The lung bases are clear. The liver, spleen, gallbladder, pancreas, kidneys, and adrenal glands are within normal limits. No bowel wall thickening or obstruction. The pelvic organs are unremarkable. No suspicious lytic or blastic osseous lesions. Prior appendectomy. Linear scarlike densities within the mid abdominal wall. IMPRESSION: No significant abnormality identified within the abdomen or pelvis. Hospital Course (1) Constipation: Nausea, vomiting and Constipation H/O Hirschsprung's disease s/p multiple abdominal surgeries CT ABD:No significant abnormality identified within the abdomen or pelvis. Patient placed on clear liquids, IV fluids GI recommended MiraLAX every 1 hour, patient had subsequent bowel movements after Patient evaluated by GI service GI symptoms much improved Tolerating regular diet GI cleared patient for discharge with usual Linzess and MiraLAX Recommend outpatient EGD on July 15, 2018 Outpatient follow-up with colorectal surgeon as scheduled Discussed patient's case with patient and his mother, they are all agreeable and comfortable with plan of care Elevated Blood Pressure Likely due to pain Resolved Disposition: Discharge to home Follow-up with primary care physician in the [facility] as per outlined in the discharge instruction Follow-up withGi Clinic and Colorectal surgery clinic as scheduled Total Time Total Time Spent Total Time Spent (In Minutes): 30 minutes Discharge Plan Discharge Items Patient Disposition: Home - Self-Care Reason For Visit: CONSTIPATION Discharge Diagnosis: CONSTIPATION Discharge Goals: Diagnostic testing and Therapeutic intervention Activity: Resume your previous activity Non-emergency contact: Primary Care Provider Call non-emergency contact if: you have any medication questions, your symptoms worsen and you have a fever Follow-up/Referrals: PCP,NO [Primary Care Provider] - Diet: Regular Addtl Provider Instructions: PLEASE FOLLOW UP WITH [facility] PRIMARY CARE PHYSICIAN DR. CAROLYN CASTELAN ON Thursday06/28/18 AT 4:05PM. FOLLOW UP WITH THE GI CLINIC DR. MARTÍNEZ FOR UPPER GI ENDOSCOPY ON 07/15/18. FOLLOW UP WITH COLORECTAL SURGEON SCHEDULED. ALWAYS STAY WELL HYDRATED. CALL PRIMARY CARE PHYSICIAN OR GI CLINIC IMMEDIATELY IF WITH RECURRENCE OF SYMPTOMS, INCREASING NAUSEA, ABDOMINAL PAIN, POOR INTAKE. Prescriptions: Continued polyethylene glycol 3350 [Miralax] 17 gram Powder In Packet 17 g PO DAILY RF: 0 omeprazole 20 mg Capsule,Delayed Release(Dr/Ec) 20 mg PO DAILY RF: 0 Linzess 290 mcg Capsule 290 mcg PO DAILY RF: 0 Stand-Alone Forms: My [facility], Work/School Release (Inpt) Discharge Orders: Discharge Order (Routine); Ordered 06/24/18 Ordered By: Ross Norwood Admission Data Admit Date/Time: 06/23/18 15:03 Attending Provider: Ross Norwood Admit Provider: Magdiel Shanks Primary Care Provider: PCP,NO Other Providers: Magdiel Shanks ; Elmer Smith Service: Surgical Services Other Interventions: Discharge Summary Assessment (RN) Last Done: 06/24/18 13:41 DC Date/Time DO NOT enter until pt leaves facility: 06/24/18 15:05
== END 2018-06-24 15:05 | disposition home or self-care (01) ==
LOC: 3N 10:56 → ED 10:56 → 3N 17:45
DX: Z88.8 Allergy status to other drugs, medicaments and biological substances; Q43.1 Hirschsprung's disease; Z98.890 Other specified postprocedural states; Z88.1 Allergy status to other antibiotic agents; K59.00 Constipation, unspecified; Z79.899 Other long term (current) drug therapy

== ENCOUNTER 2018-08-14 23:49 | Observation (INO) ==
[2018-08-15] MEDS ORDERED: MoRPHine SULFATE 4 MG/ML 1 ML CARP\\VIAL IV STA (01:20)
[2018-08-15] MEDS ORDERED: METOCLOPRAMIDE HCL INJ 5 MG/ML 2 ML VIAL IV STA (01:20)
[2018-08-15 01:38] LABS: Basophils # (auto) 0.04 K/uL (0-0.2); Basophils % (auto) 0.6 %; Eosinophils % (auto) 3.1 %; Hematocrit (blood only) 38.2 % (42-52); Hemoglobin 13.6 g/dL (14.0-18.0); Immature Granulocytes # (auto) 0.02 K/uL (0.00-0.02); Immature Granulocytes % (auto) 0.3 %; Lymphocytes # (auto) 2.86 K/uL (1.2-3.4); Lymphocytes % (auto) 43.7 %; Mean Corpuscular Hgb Conc 35.6 g/dL (32-36); Mean Corpuscular Volume 82.5 fL (80-100); Mean Platelet Volume 10.9 fL (7.4-10.4); Monocytes # (auto) 0.73 K/uL (0.11-0.59); Monocytes % (auto) 11.1 %; Neutrophils % (auto) 41.2 %; Platelet Count 307 K/uL (130-400); RDW Coefficient of Variation 12.6 % (11.5-14.5); RDW Standard Deviation 37.8 fL (36.4-46.3); Red Blood Count 4.63 M/uL (4.7-6.1); White Blood Count 6.55 K/uL (4.8-10.8)
[2018-08-15 01:44] LABS: INR 1.1 (0.9-1.1); Partial Thromboplastin Time 27.9 Seconds (21.0-31.0); Prothrombin Time 10.8 Seconds (9.0-12.0)
[2018-08-15 01:49] LABS: Albumin Globulin Ratio 1.2 (0.9-2); Albumin Level 3.9 gm/dl (3.4-5.0); BUN Creatinine Ratio 16.5 (10-20); Bilirubin,Total 0.3 mg/dl (0.2-1); Calcium 9.3 mg/dl (8.5-10.1); Creatinine Clr Calc Pharmacy 126.6 ml/min; Est GFR (African American) 111.9; Est GFR (Non-African American) 96.5; Globulin 3.2 gm/dl (2.5-4.0); Total Protein 7.1 gm/dl (6.4-8.2)
[2018-08-15 02:05] LABS: Potassium 3.9 mmol/L (3.5-5.1)
[2018-08-15] MEDS ORDERED: IOVERSOL 100ml IV PRN (02:28)
--- NOTE | 2018-08-15 04:09 | History & Physical Report ---
Date of Service August 15, 2018 Assessment & Plan (1) UGIB (upper gastrointestinal bleed): Possible NSAID gastritis Hemoglobin at baseline hx Hirschsprung's disease status post surgery LLE pain rule out DVT OBS [facility] IV PPI for now Patient counseled about potential UGIB side effects from NSAID intake. Trend H&H, transfuse PRBC if hemoglobin less than 7 and/or for symptomatic anemia. GI consult RE UGIB LLE venous Dopplers for DVT DVT prophylaxis. SCDs Full code History of Present Illness Chief Complaint: Black stools Primary Care Provider: Marli Bermudez PA-C, History obtained from patient and records. Medical history significant for Hirschsprung's disease status post surgery, chronic anemia (baseline hemoglobin of 13). Recent confinement June 2018 for constipation symptoms. Patient underwent rectal biopsy at [facility] by his colorectal surgeon about 2 weeks ago. At home patient noted worsening rectal pain, bleeding, nausea, vomiting. Patient seen at [facility] August 05, 2018. Patient sent home after being evaluated by colorectal service. Patient was told that rectal bleeding was expected after rectal biopsy. At home, rectal bleeding, constipation symptoms finally stopped 3 days ago. 2 days ago patient noted black stools. No abdominal pain, hematemesis, chest pain, no S OB, no dizziness symptoms. Admits to NSAID intake 1-2 tabs daily (a number of times on an empty stomach) for headache symptoms after recent rectal biopsy procedure. Patient also complaining of intermittent aches on left leg the last few weeks. Medical History as above June 2018 normal EGD January 2014 normal colon and rectum. Surgical History : Bowel surgery, sphincterotomy, appendicostomy Family History : IBD, heart disease Personal/Social history : Non-smoker, no EtOH intake, [employer] employee Allergies Allergy/AdvReac Type Severity Reaction Status Date / Time amoxicillin Allergy Unknown . Verified 08/15/18 00:28 clavulanic acid Allergy Unknown . Verified 08/15/18 00:28 Home Medications Home Medications Medication Instructions Recorded Confirmed Type Linzess 290 mcg PO DAILY 06/23/18 08/15/18 History polyethylene glycol 3350 [Miralax] 17 g PO DAILY 06/23/18 08/15/18 History Past Med/Surg History Medical History Hirschsprung's disease (Chronic) Surgical History History of appendectomy (Resolved) Hx of colonoscopy (Resolved) Family History Mother Colitis Social History Preferred Language: Japanese Communication Ability: Effective Beliefs That Will Affect Care: None Current Living Situation: Family Current Living Situation Comment: Grandfather and mother. Other Information That Helps Us Care for You: No Feels Safe at Home: Yes Safety Concerns: Feels Safe At This Time Smoking Status: Never smoker Do You Dip or Chew Tobacco: No Second Hand Exposure: No Tobacco Cessation Education Requested by Patient: No Hx Alcohol Use: Yes (rare) Alcohol type: hard liquor Hx Substance Use: No Review of Systems Review of Systems: As per HPI, all 10 systems reviewed, all other ROS negative Physical Exam Physical Exam: GENERAL: Comfortable, slightly anxious, no respiratory distress SKIN: Pallor , warm HEENT: Pale palpebral conjunctivae, no ptosis, dry buccal mucosa NECK : Supple, no tenderness CHEST : CTA, no tenderness HEART : RRR, no obvious murmurs ABDOMEN: Some distention, no overt tenderness EXTREMITIES : No LE swelling/tenderness, no other conspicuous deformities noted NEUROLOGIC : Coherent, no facial asymmetry, no other gross focality Results & Data Vital Signs (Past 12 Hours) Vital Signs Temp Pulse Pulse Resp BP BP Pulse Ox 08/15/18 02:36 78 18 122/61 97 08/15/18 01:27 64 18 129/60 95 08/14/18 23:55 36.7 C 63 16 123/82 98 Laboratory Results Laboratory Results WBC 6.55 K/uL (4.8-10.8) 08/15/18 00:14 RBC 4.63 M/uL (4.7-6.1) L 08/15/18 00:14 Hgb 13.6 g/dL (14.0-18.0) L 08/15/18 00:14 Hct 38.2 % (42-52) L 08/15/18 00:14 MCV 82.5 fL (80-100) 08/15/18 00:14 MCH 29.4 pg (25-34) 08/15/18 00:14 MCHC 35.6 g/dL (32-36) 08/15/18 00:14 RDW Std Deviation 37.8 fL (36.4-46.3) 08/15/18 00:14 RDW Coeff of Tono 12.6 % (11.5-14.5) 08/15/18 00:14 Plt Count 307 K/uL (130-400) 08/15/18 00:14 MPV 10.9 fL (7.4-10.4) H 08/15/18 00:14 Immature Gran % (Auto) 0.3 % 08/15/18 00:14 Neut % (Auto) 41.2 % 08/15/18 00:14 Lymph % (Auto) 43.7 % 08/15/18 00:14 Clare % (Auto) 11.1 % 08/15/18 00:14 Eos % (Auto) 3.1 % 08/15/18 00:14 Baso % (Auto) 0.6 % 08/15/18 00:14 Immature Gran # (Auto) 0.02 K/uL (0.00-0.02) 08/15/18 00:14 Neut # (Auto) 2.70 K/uL (1.4-6.5) 08/15/18 00:14 Lymph # (Auto) 2.86 K/uL (1.2-3.4) 08/15/18 00:14 Clare # (Auto) 0.73 K/uL (0.11-0.59) H 08/15/18 00:14 Eos # (Auto) 0.20 K/uL (0-0.5) 08/15/18 00:14 Baso # (Auto) 0.04 K/uL (0-0.2) 08/15/18 00:14 PT 10.8 Seconds (9.0-12.0) 08/15/18 00:14 INR 1.1 (0.9-1.1) 08/15/18 00:14 APTT 27.9 Seconds (21.0-31.0) 08/15/18 00:14 PTT Ratio 1.0 08/15/18 00:14 Sodium 140 mmol/L (136-145) 08/15/18 00:14 Potassium 3.9 mmol/L (3.5-5.1) 08/15/18 01:36 Chloride 106 mmol/L (98-107) 08/15/18 00:14 Carbon Dioxide 30 mmol/L (21-32) 08/15/18 00:14 Anion Gap 4.0 (3-11) 08/15/18 00:14 BUN 18 mg/dl (7-18) 08/15/18 00:14 Creatinine 1.09 mg/dl (0.6-1.4) 08/15/18 00:14 Est Cr Clr Drug Dosing 126.6 ml/min 08/15/18 00:14 Est GFR ( Amer) 111.9 08/15/18 00:14 Est GFR (Non-Af Amer) 96.5 08/15/18 00:14 BUN/Creatinine Ratio 16.5 (10-20) 08/15/18 00:14 Glucose 85 mg/dl (70-99) 08/15/18 00:14 Calcium 9.3 mg/dl (8.5-10.1) 08/15/18 00:14 Total Bilirubin 0.3 mg/dl (0.2-1) 08/15/18 00:14 AST 17 U/L (15-37) 08/15/18 01:36 ALT 27 U/L (12-78) 08/15/18 00:14 Alkaline Phosphatase 76 U/L (45-117) 08/15/18 00:14 Total Protein 7.1 gm/dl (6.4-8.2) 08/15/18 00:14 Albumin 3.9 gm/dl (3.4-5.0) 08/15/18 00:14 Globulin 3.2 gm/dl (2.5-4.0) 08/15/18 00:14 Albumin/Globulin Ratio 1.2 (0.9-2) 08/15/18 00:14 Lipase 156 U/L (73-393) 08/15/18 00:14 Blood Type O Negative 08/15/18 01:36 Antibody Screen NEGATIVE 08/15/18 01:[address] abdomen pelvis initial read: Prior appendectomy. No colitis fecal-like material in the pelvic small bowel loops may reflect stasis versus muscle overgrowth. Postsurgical changes anterior abdominal wall.
[2018-08-15] MEDS ORDERED: ACETAMINOPHEN 325 MG TAB PO PRN (04:18)
[2018-08-15] MEDS ORDERED: PROMETHAZINE HCL 12.5 MG in SODIUM CHLORIDE 0.9% 50 ML IV PRN (04:18)
[2018-08-15] MEDS ORDERED: LORazepam 0.25 MG/0.5 ML VIAL IV PRN (04:18)
[2018-08-15] MEDS ORDERED: TRAMADOL HCL 50 MG TABLET PO PRN (04:18)
[2018-08-15] MEDS: PANTOprazole 40 MG in SYRINGE 0 ML IV SCH ×2 (04:22→21:05)
--- NOTE | 2018-08-15 04:23 | Emergency Department Note ---
History of Present Illness General Chief complaint: GI Assessment Stated complaint: PASSING BLOOD IN STOOL History of Present Illness Maximum Pain Intensity: 5 This 23-year-old presents to the ER complaining of abdominal pain with rectal bleeding Location: Abdomen Quality: Crampy Severity: Moderate Duration: Past few days Timing: Started few days ago Context: Pain got worse and patient came in Modifying factors: better with nothing; worse with straining to go the bathroom Patient is Hirschsprung's disease. He had a biopsy done 10 days ago. He does not know the results. Patient complains of increasing lower abdominal pain and rectal discomfort and penile discomfort. Patient states he had dark stool and bright red bleeding. Patient denies chest pain, dyspnea, fevers, diarrhea, testicular pain, penile discharge, penile rash or discoloration. Home Medications Home Medications Medication Instructions Recorded Confirmed Type Linzess 290 mcg PO DAILY 06/23/18 08/15/18 History polyethylene glycol 3350 [Miralax] 17 g PO DAILY 06/23/18 08/15/18 History Allergies Allergy/AdvReac Type Severity Reaction Status Date / Time amoxicillin Allergy Unknown . Verified 08/15/18 00:28 clavulanic acid Allergy Unknown . Verified 08/15/18 00:28 Past Med/Surg History Medical History Hirschsprung's disease (Chronic) Surgical History History of appendectomy (Resolved) Hx of colonoscopy (Resolved) Family History Mother Colitis Social History Preferred Language: Portuguese Communication Ability: Effective Beliefs That Will Affect Care: None Current Living Situation: Alone Feels Safe at Home: Yes Smoking Status: Never smoker Second Hand Exposure: No Hx Alcohol Use: Yes Hx Substance Use: No Review of Systems All systems reviewed & are unremarkable except as noted in HPI & below Physical Exam Vital Signs Vital Signs - 24 hr 08/14/18 23:55 08/15/18 01:27 08/15/18 02:36 Temperature 36.7 C Temperature Source Oral Sepsis Action Taken by Nursing No Action Required Pulse Rate - Lying Pulse Rate - Sitting Pulse Rate - Standing Pulse Rate 63 Pulse Rate [Finger] 64 78 Pulse Rhythm [Finger] Regular Pulse Strength [Finger] Normal Respiratory Rate 16 18 18 Respiratory Effort / Characteristics Non-Labored Spontaneous Non-Labored Respiratory Depth Normal Normal Respiratory Pattern Regular Blood Pressure - Lying Blood Pressure - Sitting Blood Pressure- Standing Blood Pressure 123/82 Blood Pressure [Right Arm] 129/60 122/61 Blood Pressure Mean 95 Blood Pressure Mean [Right Arm] 83 81 Blood Pressure Position [Right Arm] Lying Pulse Oximetry 98 95 97 Oxygen Delivery Method Room Air Room Air Room Air 08/15/18 04:07 Temperature Temperature Source Sepsis Action Taken by Nursing Pulse Rate - Lying 73 Pulse Rate - Sitting 69 Pulse Rate - Standing 75 Pulse Rate Pulse Rate [Finger] Pulse Rhythm [Finger] Pulse Strength [Finger] Respiratory Rate Respiratory Effort / Characteristics Respiratory Depth Respiratory Pattern Blood Pressure - Lying 126/58 L Blood Pressure - Sitting 124/63 Blood Pressure- Standing 118/64 Blood Pressure Blood Pressure [Right Arm] Blood Pressure Mean Blood Pressure Mean [Right Arm] Blood Pressure Position [Right Arm] Pulse Oximetry Oxygen Delivery Method VITALS: Vitals are noted on the nurse's note and reviewed by myself. Vital signs stable. GENERAL: Pleasant male, in no acute distress, nondiaphoretic, well-developed well-nourished. SKIN: The skin was without rashes, erythema, edema, or bruising. There is no tenting of the skin. Capillary reflex less than 2 seconds. HEAD: Normocephalic atraumatic. EARS: External auditory canals clear, tympanic membranes pearly miranda without erythema or effusion bilaterally. EYES: Pupils equal round and reactive to light and accommodation. Conjunctivae without injection, sclerae without icterus. Extraocular movements intact. NOSE: Patent, turbinates without inflammation or discharge. MOUTH: Mucous membranes moist. Pharynx without erythema or exudate. Uvula midline. Airway patent. Tongue does not deviate. NECK: Supple without nuchal rigidity. No lymphadenopathy. No thyromegaly. Cervical spine is nontender. No JVD. HEART: Regular rate and rhythm without murmurs gallops or rubs. LUNGS: Clear to auscultation bilaterally without wheezes, rales or rhonchi. No retractions or accessory muscle use. ABDOMEN: Positive bowel sounds x 4. Normal tympanic percussion. Soft, tender to palpation lower abdomen, without masses or organomegaly. Nicholas sign negative. No guarding or rebound tenderness. No CVA tenderness exam: Normal external male genitalia, penis and testicles without rash, nontender to palpation. Gerontological Nurse Practitioner present. No penile discharge appreciated. Rectal exam: No fissures or tears, bright red blood in the vault. MUSCULOSKELETAL: No muscle atrophy, erythema, or edema noted. NEURO: Patient was alert and oriented to person place and time. Normal sensation to light and sharp touch. No focal neurological deficits. Course Administered Medications Ioversol (Optiray 320 100ml) 95 ml IV ONCE PRN PRN Reason: Interaction Checking Stop: 08/19/18 02:27 Last Admin: 08/15/18 02:28 Dose: 95 ml Documented by: [id number] Discontinued Medications Metoclopramide HCl (Reglan) 10 mg IV NOW STA Stop: 08/15/18 01:21 Last Admin: 08/15/18 01:26 Dose: 10 mg Documented by: [id number] Morphine Sulfate (Morphine Sulfate) 4 mg IV NOW STA Stop: 08/15/18 01:21 Last Admin: 08/15/18 01:26 Dose: 4 mg Documented by: [id number] Medical Decision Making Medical Records Attestation: I reviewed the patient's medical records. Home Medications Current Medication List: was personally reviewed by me Laboratory Data Attestation: I reviewed the patient's lab results. Result diagrams: 08/15/18 00:14 08/15/18 01:36 Lab Results 08/15/18 08/15/18 08/15/18 Range/Units 00:14 00:14 00:14 WBC 6.55 (4.8-10.8) K/uL RBC 4.63 L (4.7-6.1) M/uL Hgb 13.6 L (14.0-18.0) g/dL Hct 38.2 L (42-52) % MCV 82.5 (80-100) fL MCH 29.4 (25-34) pg MCHC 35.6 (32-36) g/dL RDW Std Deviation 37.8 (36.4-46.3) fL RDW Coeff of Tono 12.6 (11.5-14.5) % Plt Count 307 (130-400) K/uL MPV 10.9 H (7.4-10.4) fL Immature Gran % (Auto) 0.3 % Neut % (Auto) 41.2 % Lymph % (Auto) 43.7 % Morrow % (Auto) 11.1 % Eos % (Auto) 3.1 % Baso % (Auto) 0.6 % Immature Gran # (Auto) 0.02 (0.00-0.02) K/uL Neut # (Auto) 2.70 (1.4-6.5) K/uL Lymph # (Auto) 2.86 (1.2-3.4) K/uL Morrow # (Auto) 0.73 H (0.11-0.59) K/uL Eos # (Auto) 0.20 (0-0.5) K/uL Baso # (Auto) 0.04 (0-0.2) K/uL PT 10.8 (9.0-12.0) Seconds INR 1.1 (0.9-1.1) APTT 27.9 (21.0-31.0) Seconds PTT Ratio 1.0 Sodium 140 (136-145) mmol/L Potassium (3.5-5.1) mmol/L Chloride 106 (98-107) mmol/L Carbon Dioxide 30 (21-32) mmol/L Anion Gap 4.0 (3-11) BUN 18 (7-18) mg/dl Creatinine 1.09 (0.6-1.4) mg/dl Est Cr Clr Drug Dosing 126.6 ml/min Est GFR ( Amer) 111.9 Est GFR (Non-Af Amer) 96.5 BUN/Creatinine Ratio 16.5 (10-20) Glucose 85 (70-99) mg/dl Calcium 9.3 (8.5-10.1) mg/dl Total Bilirubin 0.3 (0.2-1) mg/dl AST (15-37) U/L ALT 27 (12-78) U/L Alkaline Phosphatase 76 (45-117) U/L Total Protein 7.1 (6.4-8.2) gm/dl Albumin 3.9 (3.4-5.0) gm/dl Globulin 3.2 (2.5-4.0) gm/dl Albumin/Globulin Ratio 1.2 (0.9-2) Lipase 156 (73-393) U/L Blood Type Antibody Screen 08/15/18 08/15/18 Range/Units 01:36 01:36 WBC (4.8-10.8) K/uL RBC (4.7-6.1) M/uL Hgb (14.0-18.0) g/dL Hct (42-52) % MCV (80-100) fL MCH (25-34) pg MCHC (32-36) g/dL RDW Std Deviation (36.4-46.3) fL RDW Coeff of Tono (11.5-14.5) % Plt Count (130-400) K/uL MPV (7.4-10.4) fL Immature Gran % (Auto) % Neut % (Auto) % Lymph % (Auto) % Morrow % (Auto) % Eos % (Auto) % Baso % (Auto) % Immature Gran # (Auto) (0.00-0.02) K/uL Neut # (Auto) (1.4-6.5) K/uL Lymph # (Auto) (1.2-3.4) K/uL Morrow # (Auto) (0.11-0.59) K/uL Eos # (Auto) (0-0.5) K/uL Baso # (Auto) (0-0.2) K/uL PT (9.0-12.0) Seconds INR (0.9-1.1) APTT (21.0-31.0) Seconds PTT Ratio Sodium (136-145) mmol/L Potassium 3.9 (3.5-5.1) mmol/L Chloride (98-107) mmol/L Carbon Dioxide (21-32) mmol/L Anion Gap (3-11) BUN (7-18) mg/dl Creatinine (0.6-1.4) mg/dl Est Cr Clr Drug Dosing ml/min Est GFR ( Amer) Est GFR (Non-Af Amer) BUN/Creatinine Ratio (10-20) Glucose (70-99) mg/dl Calcium (8.5-10.1) mg/dl Total Bilirubin (0.2-1) mg/dl AST 17 (15-37) U/L ALT (12-78) U/L Alkaline Phosphatase (45-117) U/L Total Protein (6.4-8.2) gm/dl Albumin (3.4-5.0) gm/dl Globulin (2.5-4.0) gm/dl Albumin/Globulin Ratio (0.9-2) Lipase (73-393) U/L Blood Type O Negative Antibody Screen NEGATIVE Imaging Data Attestation: I personally reviewed and interpreted this imaging study as follows: MDM Narrative Prior records/ancillary studies reviewed. Triage Nursing notes reviewed. Additional history obtained from the family. The patient's history was concerning for possible gastrointestinal bleeding. Differential diagnosis: Etiologies such as diverticulosis, AVM, coagulopathy, colitis, inflammatory bowel disease, malignancy, Sherrill-Pinon tear, esophagitis, peptic ulcer diseas e, variceal bleed, gastritis, epistaxis, fissure, hemorrhoids, as well as others were entertained. Physical exam: As above. The patients vital signs were stable. ER treatment provided: IV fluids, morphine, Zofran On reassessment the patient felt better. Diagnostics interpreted by me: The labs revealed no leukocytosis. Stable H&H Imaging studies: CT ABDOMEN & PELVIS With Contrast: COMPARISON: None IMPRESSION: Prior appendectomy without small bowel obstruction. No colonic wall thickening to suggest colitis. Under distention limits assessment for small bowel wall thickening/enteritis. Fecal-like material present in nondistended pelvic small bowel loops may reflect stasis or bacterial overgrowth. No free fluid, free air, hydroureteronephrosis, or biliary ductal dilatation. INCIDENTAL FINDINGS: Postsurgical change in the anterior abdominal wall. Radiologist: Reji Mendoza M.D. Consultation: A consultation was placed with Dr Stacy ventura. The case was discussed and diagnostics were reviewed. The patient was evaluated in the ER for further treatment. This appears to be consistent with abdominal pain with rectal bleeding. Pain persisted. Medicine was consulted. Patient is agreeable to treatment plan of admission. Patient had episode of rectal bleeding in the ER. I did evaluate this. It was minimal. Symptoms could be from hemorrhoidal bleeding. I reviewed the biopsy results from [facility] and was negative. By the evaluation outlined above emergent etiologies such as esophageal perforation, peptic ulcer disease, variceal bleed, coagulopathy, gastritis, epistaxis, malignancy, inflammatory bowel disease, as well as others were deemed relatively unlikely. The pt informed about the findings as listed above. All questions were answered and pleased with the treatment. Case reviewed with my attending The chart was completed utilizing [employer] Speech voice recognition software. Grammatical errors, random word insertions, pronoun errors, and incomplete sentences are an occassional consequence of this system due to software limitations, ambient noise, and hardware issues. Any formal questions or concerns about the content, text, or information contained within the body of this dictation should be directly addressed to the physician web assistant for clarification. Discharge Plan Visit Data Chief Complaint: GI Assessment Stated Complaint: PASSING BLOOD IN STOOL ED Provider: Marielena Mehta ED Midlevel Provider: Orquidea Morley Discharge Problem: Bright red rectal bleeding, Constipation, Abdominal pain Patient Disposition: Being Evaluated by Hospitalist Condition: Good Forms Stand Alone Forms: My [facility] Mix[employer] Prescriptions Prescriptions: No Action polyethylene glycol 3350 [Miralax] 17 gram Powder In Packet 17 g PO DAILY RF: 0 Linzess 290 mcg Capsule 290 mcg PO DAILY RF: 0 Referrals Referrals: PCP,NO [Primary Care Provider] -
[2018-08-15] MEDS ORDERED: D5W AND LACTATED RINGERS 1,000 ML IV SCH (04:30)
[2018-08-15 04:46] LABS: Hematocrit (blood only) 37.2 % (42-52)
--- NOTE | 2018-08-15 06:07 | Ultrasound Report ---
US venous doppler LE LT HISTORY: 23 years-old Male L leg pain acute pain and swelling of the left lower leg COMPARISON: None available TECHNIQUE: Multiple real-time sonographic images of the left lower extremity deep venous structures w ere obtained assessing grayscale appearance, color and spectral flow FINDINGS: Normal flow, compressibility, phasicity and augmentation of the right lower extremity deep venous str uctures. IMPRESSION: No sonographic evidence of deep venous thrombosis. The above report was generated using voice recognition software. It may contain grammatical, syntax o r spelling errors. Electronically signed by: Ryan Castro M.D. 08/15/2018 6:05 AM
--- NOTE | 2018-08-15 08:32 | CT Scan Report ---
ABDOMEN AND PELVIS CT WITH IV CONTRAST CT DOSE: 437.78 mGy.cm HISTORY: Acute lower pelvic and rectal pain with recent rectal biopsy lower abd/rectal pain, recent biopsy, Hirshsprungs TECHNIQUE: Multiaxial CT images of the abdomen and pelvis were performed following the use of intrave nous contrast. A dose lowering technique was utilized adhering to the principles of ALARA. COMPARISON STUDY: CT abdomen and pelvis 06/23/2018. FINDINGS: Lung bases are generally clear. There is no pneumatosis or pneumoperitoneum. The imaged inferior card iac chambers are unremarkable. Gallbladder, liver, spleen, pancreas and adrenal glands are unremarkable. Patency of the hepatic and portal veins. The kidneys, and ureters are unremarkable. Mild circumferential wall thickening of the bladder with partial distention. Prostate is unremarkable. Aorta and IVC are within normal limits. Th ere is no adenopathy. No bowel obstruction. Multiple loops of ileum about the lower pelvis contain fecal material. There is mild wall thickening about the inferior rectum and anus. There is an eccentric focus of air noted ab out the 1:00 to 2:00 position of the anus on image 729 series 3, likely intraluminal. Minimal periana l stranding. No associated fluid collection. Prior appendectomy. Postoperative changes of the ventral abdominal wall. Soft tissues are otherwise unremarkable. There are a few subcentimeter bone islands noted about the right proximal femur. Bones appear to be intact. IMPRESSION: 1. No bowel obstruction, pneumatosis or pneumoperitoneum. 2. Mild wall thickening about the inferior rectum and anus with minimal perirectal inflammatory stran ding, possibly related to reported recent biopsy. No drainable fluid collection. 3. Prior appendectomy. Electronically signed by: Ryan Castro M.D. 08/15/2018 8:31 AM
[2018-08-15] MEDS ORDERED: LINACLOTIDE 290 MCG PO SCH (09:00)
[2018-08-15] MEDS: LINACLOTIDE 72 MCG CAPSULE PO SCH (09:03)
[2018-08-15] MEDS: DOCUSATE SODIUM/SENNA 50/8.6MG TAB PO SCH ×2 (09:03→20:50)
[2018-08-15] MEDS: POLYETHYLENE (MIRALAX) 17 GM PACK PO SCH (09:04)
--- NOTE | 2018-08-15 09:36 | History & Physical Report ---
Date of Service August 15, 2018 History of Present Illness Chief Complaint: Rectal bleeding Primary Care Provider: NO PCP 23 yo male, sleepy this morning, but arousable. History of Hirschprung's disease. S/p rectal biopsy with issues thereafter of pain and rectal bleeding (this was in the [place] area). He states that finally got better regarding the rectal bleeding a few days ago. He was taking NSAID's intermittently for the rectal bleeding and pain in his bottom post biopsy. However, per ED history as he is somewhat somnolent this morning and not really forthcoming with history. There is a report of dark stools for 1-2 days. No significant drop in hgb or bun rise. He was admitted under the diagnosis of a GI Bleed. This morning when speaking with the nurse who had him since admission to the floor, no further bm's. He has a slightly low bp and low hr x one but this was likely when he was sleeping. Otherwise has been hemodynamically stable, no further reports of melena. No reports of hematemesis. Some mild reports of vague abdominal distress. He is on an IV PPI. He states he does not want to stay for a scope. He also declined a rectal exam. Allergies Allergy/AdvReac Type Severity Reaction Status Date / Time amoxicillin Allergy Unknown . Verified 08/15/18 00:28 clavulanic acid Allergy Unknown . Verified 08/15/18 00:28 Home Medications Home Medications Medication Instructions Recorded Confirmed Type Linzess 290 mcg PO DAILY 06/23/18 08/15/18 History polyethylene glycol 3350 [Miralax] 17 g PO DAILY 06/23/18 08/15/18 History Past Med/Surg History Medical History Hirschsprung's disease (Chronic) Surgical History History of appendectomy (Resolved) Hx of colonoscopy (Resolved) Family History Mother Colitis Social History Preferred Language: Tajik Communication Ability: Effective Beliefs That Will Affect Care: None Current Living Situation: Family Current Living Situation Comment: Grandfather and mother. Other Information That Helps Us Care for You: No Feels Safe at Home: Yes Safety Concerns: Feels Safe At This Time Smoking Status: Never smoker Do You Dip or Chew Tobacco: No Second Hand Exposure: No Tobacco Cessation Education Requested by Patient: No Hx Alcohol Use: Yes (rare) Alcohol type: hard liquor Hx Substance Use: No Review of Systems All systems reviewed & are unremarkable except as noted in HPI & below Physical Exam Vital Signs (Past 24 Hours): Last Vital Signs Temp 36.7 C 08/15/18 06:59 Pulse 44 L 08/15/18 06:59 Resp 15 08/15/18 06:59 BP 91/46 L 08/15/18 06:59 Pulse Ox 94 08/15/18 06:59 Physical Exam: Lying in bed in no acute distress Eyes: PERRL, conjunctivae normal, anicteric sclerae Respiratory: normal respiratory effort, lungs clear to auscultation Cardiovascular: RRR, no murmur, no edema Gastrointestinal (Abdomen): normal bowel sounds, soft, nontender, no hepatosplenomegaly Results & Data Laboratory Results Labs reviewed Supervising Physician Co-Signing Physician Notes 23 yo male with a history of hirschprung's disease s/p recent rectal biopsy with issues thereafter of rectal bleeding and also rectal pressure and discomfort. This has been improving over the last few days though he reports taking NSAID"S for the rectal discomfort. Admitted overnite for reported melena, though no bowel movements, essentially hemodnyamically stable while here other than one low bp and one low hr which likely are correlated to him sleeping. He is currently declining a rectal exam and a scope. He is not having active melena, or active hematemesis. Diff for reported melena- could be nsaid induced gastritis or cleaned based ulcer. Per my discussion with him this morning, he does not want a scope or a rectal exam. I would opt for conservative medical management with high dose PPI bid (40 mg) for the next 8 weeks, outpatient egd if he is agreeable within this time period. Can also consider addition of carafate 1 gram qid for 4 weeks. If he changes his mind and wants an egd while here, would make him npo after midnitie and we can try for tomorrow.
[2018-08-15 10:20] LABS: Hematocrit (blood only) 38.3 % (42-52); Hemoglobin 13.8 g/dL (14.0-18.0)
[2018-08-15] MEDS: SODIUM CHLORIDE 0.9% 1000ML 1,000 ML IV SCH (12:11)
--- NOTE | 2018-08-15 12:12 | Hospitalist Progress Note ---
Date of Service August 15, 2018 Assessment & Plan (1) UGIB (upper gastrointestinal bleed): Rectal Bleeding H/O hirschprung's disease s/p recent rectal biopsy Chronic Constipation Has been taking NSAIDs for rectal pain Defers rectal exam/scope currently per GI No active bleeding --CT ABD: No bowel obstruction, pneumatosis or pneumoperitoneum. Mild wall thickening about the inferior rectum and anus with minimal perirectal inflammatory stranding, possibly related to reported recent biopsy. No drainable fluid collection. Prior appendectomy. --H/O hemorrhoids as per patient --DD: NSAID gastritis, hemorrhoidal bleed, PUD Continue PPI bid--8 Weeks Consider Carafate 1gm QID-- 4 weeks IV fluids Avoid NSAIDs Monitor CBC Transfuse PRBCs PRN May need EGD if patient agrees Appreciate GI Input NPO after midnight for now Liquid diet today Continue stool softners, Linzess Left LE pain Venous Doppler: No DVT DVT Px: SCD Code Status Full code Subjective Patient is seen and examined at bedside Denies any blood in stools overnight or today morning Also denies nausea, abd pain, chest pain, SOB Eager to get discharged Offers no other complaints Review of Systems Review of Systems: All systems reviewed & are unremarkable except as noted in HPI & below Physical Exam Physical Exam: Physical Exam: Vitals signs as noted above General Appearance:Moderately built and nourished, no apparent distress Head: normocephalic, Atraumatic Eyes: normal inspection, EOMI, PERRL Neck: supple, Trachea midline Respiratory/Chest: Normal breath sounds, CTA, No accessory muscle use Cardiovascular: S1, S2, No murmur Abdomen/GI:Soft, Non tender, Bowel sounds present Extremities/Musculoskelatal:normal inspection, no edema Neurologic/Psych:AAOX3, grossly no focal neurological deficits Skin: normal color, warm Results & Data Vital Signs (Past 12 Hours) Vital Signs Temp Pulse Pulse Resp BP BP Pulse Ox 08/15/18 06:59 36.7 C 44 L 15 91/46 L 94 08/15/18 05:24 36.8 C 77 14 117/73 93 08/15/18 05:12 36.8 C 77 20 117/73 93 08/15/18 04:23 63 18 118/64 98 08/15/18 02:36 78 18 122/61 97 08/15/18 01:27 64 18 129/60 95 08/14/18 23:55 36.7 C 63 16 123/82 98 Laboratory Results Short CBC 08/15/18 08/15/18 08/15/18 Range/Units 00:14 04:33 Unknown WBC 6.55 (4.8-10.8) K/uL Hgb 13.6 L 13.0 L 13.8 L (14.0-18.0) g/dL Hct 38.2 L 37.2 L 38.3 L (42-52) % Plt Count 307 (130-400) K/uL BMP 08/15/18 08/15/18 00:14 01:36 Sodium 140 Potassium 3.9 Chloride 106 Carbon Dioxide 30 BUN 18 Creatinine 1.09 Glucose 85 Calcium 9.3 Liver Function 08/15/18 08/15/18 Range/Units 00:14 01:36 Total Bilirubin 0.3 (0.2-1) mg/dl AST 17 (15-37) U/L ALT 27 (12-78) U/L Alkaline Phosphatase 76 (45-117) U/L Albumin 3.9 (3.4-5.0) gm/dl
[2018-08-16] MEDS: SODIUM CHLORIDE 0.9% 1000ML 1,000 ML IV SCH (01:30)
[2018-08-16 06:44] LABS: Basophils # (auto) 0.01 K/uL (0-0.2); Basophils % (auto) 0.3 %; Eosinophils # (auto) 0.11 K/uL (0-0.5); Eosinophils % (auto) 2.8 %; Hematocrit (blood only) 40.5 % (42-52); Immature Granulocytes # (auto) 0.01 K/uL (0.00-0.02); Immature Granulocytes % (auto) 0.3 %; Lymphocytes # (auto) 1.53 K/uL (1.2-3.4); Lymphocytes % (auto) 38.4 %; Mean Corpuscular Hgb Conc 34.6 g/dL (32-36); Mean Corpuscular Volume 83.3 fL (80-100); Mean Platelet Volume 10.5 fL (7.4-10.4); Monocytes % (auto) 12.6 %; Neutrophils # (auto) 1.82 K/uL (1.4-6.5); Neutrophils % (auto) 45.6 %; Platelet Count 259 K/uL (130-400); RDW Coefficient of Variation 12.7 % (11.5-14.5); RDW Standard Deviation 38.3 fL (36.4-46.3); Red Blood Count 4.86 M/uL (4.7-6.1); White Blood Count 3.98 K/uL (4.8-10.8)
[2018-08-16 07:26] LABS: BUN Creatinine Ratio 11.2 (10-20); Calcium 9.2 mg/dl (8.5-10.1); Creatinine Clr Calc Pharmacy 132.6 ml/min; Est GFR (African American) 119.8; Est GFR (Non-African American) 103.4; Potassium 3.9 mmol/L (3.5-5.1)
[2018-08-16 07:41] LABS: T4 Free Thyroxine 1.2 ng/dl (0.8-1.6)
[2018-08-16] MEDS: LINACLOTIDE 72 MCG CAPSULE PO SCH (08:55)
[2018-08-16] MEDS: POLYETHYLENE (MIRALAX) 17 GM PACK PO SCH (08:55)
[2018-08-16] MEDS: DOCUSATE SODIUM/SENNA 50/8.6MG TAB PO SCH (08:55)
[2018-08-16] MEDS: PANTOprazole 40 MG in SYRINGE 0 ML IV SCH (08:55)
--- NOTE | 2018-08-16 08:58 | Gastroenterology Progress Note ---
Date of Service August 16, 2018 Assessment & Plan (1) Hirschsprung's disease: 23 year old male with history of Hirschprung disease, encopresis, s/p colostomy, pull through followed by colostomy takedown, MACE procedure admitted for rectal bleeding concern for melena following rectal wall biopsy 08/05/18. He has since moved bowels without any evidence of melena, HGB has remained stable. He does note this AM he passed some clear mucous that had streaking of BRB. - Follow up w/ colorectal surgery regarding bx and moving forward - No current indication for endoscopy - No GI contraindication to diet - No GI contraindication to D/C Thank you for allowing us to participate in the care of this patient. Please call with any acute changes, questions or concerns. Please see addendum below with additional recommendation from my supervising physician. Present on Admission?: Yes Supervising Physician Co-Signing Physician Notes I have performed a history and physical examination of this patient and reviewed the electronic medical record. Specifically, on physical examination there is no abdominal tenderness. I have discussed the case with CRISTOPHER Ruiz. The above note reflects my findings, conclusions, and recommendations. Elmer Smith MD Subjective Pt was seen and evaluated, chart reviewed. Hx Hirschprung disease, encopresis, s/p colostomy, pull through followed by colostomy takedown, MACE procedure. No complaints this AM. No abdominal pain. No black stools. No BM this AM. Did pass some mucous this AM with some streaking of BRB. S/P EUA with rectal biopsy for fecal incontinence by 08/05/18. No rectal pain. No fever, chills, CP, SOB EGD 07/15/18: Normal esophagus.Normal stomach. Normal examined duodenum. No specimens collected Colonoscopy 01/25/14: The sigmoid colon and rectum are normal. Biopsied. The transverse and descending colon are normal. Biopsied. Normal mucosa of the cecum and ascending colon. Biopsied. Small ulcerated area at the internal opening of the apendicostomy tube which was NOT biopsied. The examined portion of the ileum was normal. Biopsied. EGD 07/05/10: No gross lesions in duodenum. No gross lesions in the stomach. No gross lesions in esophagus Review of Systems Constitutional: no fever, no chills, no fatigue and no weakness Respiratory: no cough, no dyspnea, no pain on inspiration and no wheezing Cardiovascular: no chest pain, no radiating jaw, neck or arm pain, no dyspnea on exertion and no palpitations Gastrointestinal: no abdominal pain, no belching, no early satiety, no vomiting, no coffee ground emesis and no melena Physical Exam Constitutional: WD/WN, vitals as above Respiratory: normal respiratory effort, lungs clear to auscultation Cardiovascular: RRR, no murmur, no edema Gastrointestinal (Abdomen): normal bowel sounds, soft, nontender, no hepatosplenomegaly Skin: no rashes, warm and dry Results & Data Vital Signs (Past 12 Hours) Vital Signs Temp Pulse Resp BP Pulse Ox 08/16/18 07:39 36.9 C 61 16 99/60 L 97 08/15/18 22:50 36.8 C 68 18 104/66 97 Laboratory Results 08/16/18 08/16/18 08/15/18 Range/Units 06:17 06:17 Unknown WBC 3.98 L (4.8-10.8) K/uL RBC 4.86 (4.7-6.1) M/uL Hgb 14.0 13.8 L (14.0-18.0) g/dL Hct 40.5 L 38.3 L (42-52) % MCV 83.3 (80-100) fL MCH 28.8 (25-34) pg MCHC 34.6 (32-36) g/dL RDW Std Deviation 38.3 (36.4-46.3) fL RDW Coeff of [place] 12.7 (11.5-14.5) % Plt Count 259 (130-400) K/uL MPV 10.5 H (7.4-10.4) fL Immature Gran % (Auto) 0.3 % Neut % (Auto) 45.6 % Lymph % (Auto) 38.4 % [place] % (Auto) 12.6 % Eos % (Auto) 2.8 % Baso % (Auto) 0.3 % Immature Gran # (Auto) 0.01 (0.00-0.02) K/uL Neut # (Auto) 1.82 (1.4-6.5) K/uL Lymph # (Auto) 1.53 (1.2-3.4) K/uL [place] # (Auto) 0.50 (0.11-0.59) K/uL Eos # (Auto) 0.11 (0-0.5) K/uL Baso # (Auto) 0.01 (0-0.2) K/uL Sodium 138 (136-145) mmol/L Potassium 3.9 (3.5-5.1) mmol/L Chloride 105 (98-107) mmol/L Carbon Dioxide 30 (21-32) mmol/L Anion Gap 3.0 (3-11) BUN 12 (7-18) mg/dl Creatinine 1.03 (0.6-1.4) mg/dl Est Cr Clr Drug Dosing 132.6 ml/min Est GFR ( Amer) 119.8 Est GFR (Non-Af Amer) 103.4 BUN/Creatinine Ratio 11.2 (10-20) Glucose 91 (70-99) mg/dl Calcium 9.2 (8.5-10.1) mg/dl TSH 2.000 (0.300-4.500) uIu/ml Free T4 1.20 (0.8-1.6) ng/dl
--- NOTE | 2018-08-16 11:26 | Hospitalist Progress Note ---
Date of Service August 16, 2018 Assessment & Plan (1) UGIB (upper gastrointestinal bleed): Rectal Bleeding H/O hirschprung's disease s/p recent rectal biopsy Chronic Constipation Has been taking NSAIDs for rectal pain Defers rectal exam/scope currently per GI No active bleeding --CT ABD: No bowel obstruction, pneumatosis or pneumoperitoneum. Mild wall thickening about the inferior rectum and anus with minimal perirectal inflammatory stranding, possibly related to reported recent biopsy. No drainable fluid collection. Prior appendectomy. --H/O hemorrhoids as per patient --DD: NSAID gastritis, hemorrhoidal bleed, PUD Continue PPI bid--8 Weeks Received IV fluids Avoid NSAIDs Monitor CBC--Hb stable Transfuse PRBCs PRN No plan for EGD currently Appreciate GI Input Tolerated diet Continue stool softners, Linzess Needs FU with Colorectal surgery as outpatient Left LE pain Venous Doppler: No DVT DVT Px: SCDs Code Status Full code Disposition: Plan to discharge home today Subjective Patient is seen and examined at bedside Hb stable offers no complaints Denies abdominal pain Had minimal mucous with streaks of blood Discussed with GI today No plan for EGD, FU as outpatient Also denies nausea, chest pain, SOB Eager to get discharged Review of Systems Review of Systems: All systems reviewed & are unremarkable except as noted in HPI & below Physical Exam Physical Exam: Physical Exam: Vitals signs as noted above General Appearance:Moderately built and nourished, no apparent distress Head: normocephalic, Atraumatic Eyes: normal inspection, EOMI, PERRL Neck: supple, Trachea midline Respiratory/Chest: Normal breath sounds, CTA, No accessory muscle use Cardiovascular: S1, S2, No murmur Abdomen/GI:Soft, Non tender, Bowel sounds present Extremities/Musculoskelatal:normal inspection, no edema Neurologic/Psych:AAOX3, grossly no focal neurological deficits Skin: normal color, warm Results & Data Vital Signs (Past 12 Hours) Vital Signs Temp Pulse Resp BP Pulse Ox 08/16/18 11:13 36.9 C 61 16 99/60 L 97 08/16/18 07:39 36.9 C 61 16 99/60 L 97 Laboratory Results Short CBC 08/16/18 Range/Units 06:17 WBC 3.98 L (4.8-10.8) K/uL Hgb 14.0 (14.0-18.0) g/dL Hct 40.5 L (42-52) % Plt Count 259 (130-400) K/uL BMP 08/16/18 06:17 Sodium 138 Potassium 3.9 Chloride 105 Carbon Dioxide 30 BUN 12 Creatinine 1.03 Glucose 91 Calcium 9.2
--- NOTE | 2018-08-16 11:32 | Discharge Summary ---
Date of Service August 16, 2018 Admission HPI Per Admitting Provider 23 yo male, sleepy this morning, but arousable. History of Hirschprung's disease. S/p rectal biopsy with issues thereafter of pain and rectal bleeding (this was in the [place] area). He states that finally got better regarding the rectal bleeding a few days ago. He was taking NSAID's intermittently for the rectal bleeding and pain in his bottom post biopsy. However, per ED history as he is somewhat somnolent this morning and not really forthcoming with history. There is a report of dark stools for 1-2 days. No significant drop in hgb or bun rise. He was admitted under the diagnosis of a GI Bleed. This morning when speaking with the nurse who had him since admission to the floor, no further bm's. He has a slightly low bp and low hr x one but this was likely when he was sleeping. Otherwise has been hemodynamically stable, no further reports of melena. No reports of hematemesis. Some mild reports of vague abdominal distress. He is on an IV PPI. He states he does not want to stay for a scope. He also declined a rectal exam. Admission Exam Per Admitting Provider GENERAL: Comfortable, slightly anxious, no respiratory distress SKIN: Pallor , warm HEENT: Pale palpebral conjunctivae, no ptosis, dry buccal mucosa NECK : Supple, no tenderness CHEST : CTA, no tenderness HEART : RRR, no obvious murmurs ABDOMEN: Some distention, no overt tenderness EXTREMITIES : No LE swelling/tenderness, no other conspicuous deformities noted NEUROLOGIC : Coherent, no facial asymmetry, no other gross focality Principal Diagnosis Discharge Information Discharge Diagnosis GI bleeding Discharge Goals Decrease discomfort,Improve disease control, Improve function Discharge Activity Limitations Resume your previous activity Discharge Data Allergies Allergy/AdvReac Type Severity Reaction Status Date / Time amoxicillin Allergy Unknown . Verified 08/15/18 00:28 clavulanic acid Allergy Unknown . Verified 08/15/18 00:28 Consultations 08/15/18 03:33 ED Decision to Admit Stat 08/15/18 04:18 Consult Gastroenterology Routine Procedures Performed CT ABD: 1. No bowel obstruction, pneumatosis or pneumoperitoneum. 2. Mild wall thickening about the inferior rectum and anus with minimal perirectal inflammatory stranding, possibly related to reported recent biopsy. No drainable fluid collection. 3. Prior appendectomy. Venous Doppler: No sonographic evidence of deep venous thrombosis. Ordered Studies 08/15/18 00:00 US venous doppler LE LT Urgent 08/15/18 01:20 CT abd pelvis IV con only Stat Hospital Course (1) UGIB (upper gastrointestinal bleed): Rectal Bleeding H/O hirschprung's disease s/p recent rectal biopsy Chronic Constipation Has been taking NSAIDs for rectal pain Defers rectal exam/scope currently per GI No active bleeding --CT ABD: No bowel obstruction, pneumatosis or pneumoperitoneum. Mild wall thickening about the inferior rectum and anus with minimal perirectal inflammatory stranding, possibly related to reported recent biopsy. No drainable fluid collection. Prior appendectomy. --H/O hemorrhoids as per patient --DD: NSAID gastritis, hemorrhoidal bleed, PUD Continue PPI bid--8 Weeks Received IV fluids Avoid NSAIDs Monitor CBC--Hb stable Transfuse PRBCs PRN No plan for EGD currently Appreciate GI Input Tolerated diet Continue stool softners, Linzess Needs FU with Colorectal surgery as outpatient Left LE pain Venous Doppler: No DVT DVT Px: SCDs Code Status Full code Disposition: Plan to discharge home today Total Time Total Time Spent Total Time Spent (In Minutes): 28 minutes Total Time Includes: Examination of the Patient, Discharge Planning, Medication Reconciliation, Communication With Other Providers and Other Discharge Plan Discharge Items Patient Disposition: Home - Self-Care Reason For Visit: UGIB Discharge Diagnosis: GI bleeding Condition: Good Discharge Goals: Decrease discomfort, Improve disease control and Improve function Activity: Resume your previous activity Exercise/Sports: Gradually increase as tolerated Non-emergency contact: Primary Care Provider, Surgeon and Business Banking Manager Call non-emergency contact if: you have any medication questions, your symptoms worsen, your pain is not controlled, your pain is worsening, your pain is unusual for you, your pain is concerning for you and you have a fever Follow-up/Referrals: PCP,NO [Primary Care Provider] - Diet: Regular Addtl Provider Instructions: Follow up with your PCP Marli Loco on August 20, 2018 at 9:45AM Follow up with your Colorectal Surgeon on August 31, 2018 at 9:45AM Follow up with your Business Banking Manager for possible EGD as outpatient as advised Avoid NSAIDs (Aleve, Motrin, Aspirin etc) as advised Seek immediate medical attention if your symptoms reoccur or worsen Prescriptions: New sennosides-docusate sodium [Senna with Docusate Sodium] 8.6-50 mg Tablet 1 tab PO BID 30 Days Qty: 60 RF: 0 pantoprazole [Protonix] 40 mg tablet,delayed release (DR/EC) 40 mg PO BID 60 Days Qty: 120 RF: 0 Continued polyethylene glycol 3350 [Miralax] 17 gram Powder In Packet 17 g PO DAILY RF: 0 Linzess 290 mcg Capsule 290 mcg PO DAILY RF: 0 Stand-Alone Forms: [facility]/Other Patient Handouts: Constipation, Fatigue Manage Discharge Orders: Discharge Order (Routine); Ordered 08/16/18 Ordered By: Magdiel Shanks Admission Data Admit Date/Time: 08/15/18 04:16 Attending Provider: Magdiel Shanks Admit Provider: Randall Kumar Primary Care Provider: PCP,NO Other Providers: Randall Kumar ; Tre Schmitz ; Bradley Mitchell ; Yesica Gomes ; Reese Read ; Gricelda House ; Janice Brown ; Irma Mccartney ; Elmer Smith ; Sonny Da Silva ; Kat Spence ; Shantel Forman ; Kat Callahan ; Afia Lee ; Yesi Noble Service: Surgical Services Other Interventions: Discharge Summary Assessment (RN) Last Done: 08/16/18 11:13 Pending Studies at Discharge: No DC Date/Time DO NOT enter until pt leaves facility: 08/16/18 13:09
== END 2018-08-16 13:09 | disposition home or self-care (01) ==
LOC: ED 23:49 → 3W 08-15 04:16 → SUATTDRO 08-15 04:16 → INTOOBSV 08-15 04:16 → 3W 08-15 04:39